=== PATIENT | male | born 1945 | race Caucasian/White ===

== ENCOUNTER 2019-03-25 18:22 | Inpatient (IN) | payer MEDICARE, OTHER ==
[2019-03-25] VITALS (10 sets, daily range): BP systolic 107–148; BP diastolic 65–78
[~2019-03-25] VITALS: Ht 170.2 cm; Wt 81.6 kg
--- NOTE | 2019-03-25 02:30 | NUR ---
Received patient from ED via gurney accompanied by RN and DIRECTOR OF OUTSIDE SALES with Levophed gtt infusing to FELY ML.Dx:SEPSIS SHOCK.Initially patient came from HD center for hypotension.Patient obtunded. With O2 4L via T-Tube well tolerated.A-Flutter/A-fib with pvc's.FC to gravity yellow with sediments. Initial admission assessment done.With multiple skin issues and addressed.Turned and repositioned. Continue monitoring.
[2019-03-25] MEDS ORDERED: PIPERACILLIN /TAZOBACTAM 2.25 G in IV D5W 50 ML IV ONE (18:30)
[2019-03-25] MEDS ORDERED: NOREPINEPHRINE 8 MG in IV D5W 500 ML IV ONE (18:30)
[2019-03-25] MEDS ORDERED: VANCOMYCIN 1 GM in IV D5W 250 ML IV ONE (18:30)
[2019-03-25] MEDS ORDERED: NOREPINEPHRINE 8 MG in IV D5W 500 ML IV PRN ×2 (18:30→20:30)
[2019-03-25 19:07] LABS: BASOPHILS # (AUTO) 0.2 /CMM (0.0-0.2); BASOPHILS % (AUTO) 0.7 % (0.0-2.0); EOSINOPHILS % (AUTO) 1.3 % (0.0-6.0); HEMATOCRIT 43 % (39-51); HEMOGLOBIN 13.3 g/dL (13.5-17.5); LYMPHOCYTES # (AUTO) 1.1 /CMM (0.8-4.8); LYMPHOCYTES % (AUTO) 4.8 % (20.0-44.0); MEAN CORPUSCULAR HGB CONC 31 g/dl (31.0-36.0); MEAN CORPUSCULAR VOLUME 111 fL (80-96); MONOCYTES # (AUTO) 2.3 /CMM (0.1-1.30); MONOCYTES % (AUTO) 10.4 % (2.0-12.0); NEUTROPHILS # (AUTO) 18.1 /CMM (1.8-8.9); NEUTROPHILS % (AUTO) 82.8 % (43.0-81.0); PLATELET COUNT (AUTO) 304 /CMM (150-450); RED BLOOD CELL COUNT(AUTO) 3.85 MIL/uL (4.5-6.0); WHITE BLOOD COUNT (AUTO) 21.8 K/uL (4.3-11.0)
[2019-03-25 19:14] LABS: ALANINE AMINOTRANSFERASE 84 U/L (12-78); ALBUMIN 2.8 g/dL (3.4-5.0); ALKALINE PHOSPHATASE 113 U/L (46-116); ASPARTATE AMINOTRANSFERASE 75 U/L (15-37); BILIRUBIN,DIRECT 0.2 mg/dL (0.0-0.2); BILIRUBIN,TOTAL 0.5 mg/dL (0.2-1.0); CALCIUM, SERUM 8.2 mg/dL (8.5-10.1); CARBON DIOXIDE 17 mmol/L (21-32); CHLORIDE 102 mmol/L (98-107); CREATININE 3.9 mg/dL (0.6-1.3); GLUCOSE 177 mg/dL (74-106); POTASSIUM 4.2 mmol/L (3.5-5.1); SODIUM SERUM 136 mmol/L (136-145); TOTAL PROTEIN, SERUM 8.9 g/dL (6.4-8.2); UREA NITROGEN, BLOOD 58 mg/dL (7-18)
--- NOTE | 2019-03-25 19:38 | NUR ---
CALLED DR GARCIA AND LEFT A MESSAGE. AWAITING HIS CALL.
[2019-03-25 19:43] LABS: APPEARANCE,URINE Cloudy (CLEAR); BILIRUBIN,URINE SMALL (NEGATIVE); BLOOD, URINE Trace-intact Ery/uL (NEGATIVE); COLOR,URINE Yellow (YELLOW); KETONES,URINE Negative (NEGATIVE); LEUKOCYTE ESTERASE ,URINE Small (NEGATIVE); NITRITE, URINE Negative (NEGATIVE); PROTEIN,URINE 100 mg/dl (NEGATIVE); UGLUCOSE Negative (NEGATIVE); UROBILINOGEN,URINE 0.2 EU/dL (0.2)
[2019-03-25 19:53] LABS: BACTERIA,URINE Moderate /HPF (None Seen); SQUAMOUS EPITHELIAL CELL,UR Few /HPF (None Seen)
--- NOTE | 2019-03-25 20:03 | NUR ---
CALLED [employer]. CHAIN MORTISER OPERATOR WAS PAGED.
--- NOTE | 2019-03-25 20:20 | NUR ---
BED ASSIGNMENT ICU 257
[2019-03-25] MEDS ORDERED: ONDANSETRON HCL/PF 4 MG/2 ML VIAL IVP PRN (20:30)
[2019-03-25] MEDS ORDERED: FEE PK DOSING 1 MIN EA MC ONE (20:37)
[2019-03-25] MEDS: PIPERACILLIN /TAZOBACTAM 2.25 G in IV D5W 50 ML IV SCH (21:00)
--- NOTE | 2019-03-25 21:13 | NUR ---
report given to paul rn for sawyer pt will be transpoerted to icu
--- NOTE | 2019-03-25 21:30 | NUR ---
Received patient from ED via gurney accompanied by RN & dairy nutrition consultant.Patient obtunded.With O2 4L 28 % via T-piece.Aflutter /Afib with occasional pvc's per monitor with ongoing Levophed gtt infusing via FELY ML site intact.Dx: SEPTIC SHOCK.Initially patient was transferred here from HD center for hypotension.H/O VDRF,DM,CABG,AFIB,DEMENTIA,ESRD,BLADDER CA,Patient with multiple skin issues.Care plan implemented.GT clamped.FC to gravity. Turned and repositioned to comfort.Continue monitoring.
[2019-03-25 21:41] LABS: BAND % (MANUAL) 5 % (0.0-5.0); NEUTROPHILS % (MANUAL) 80 (42-76)
[2019-03-25 21:42] LABS: EOSINOPHILS % (MANUAL) 1 % (0-4); LYMPHOCYTES % (MANUAL) 5 % (16-48); METAMYELOCYTES % 1 % (0-0); MONOCYTES % (MANUAL) 8 % (0-11.0)
[2019-03-25] MEDS ORDERED: ALBUTEROL FS 2.5 MG/0.5 ML VIAL.NEB NEB SCH (22:30)
[2019-03-25] MEDS ORDERED: IPRATROPIUM BROMIDE 14 GM INHALER (or 12.9 GM) IH SCH (22:30)
[2019-03-26] VITALS (49 sets, daily range): BP systolic 93–150; BP diastolic 45–87
[2019-03-26] MEDS ORDERED: IPRATROPIUM NEB FS 0.5 MG/2.5 ML AMPUL.NEB ONE (03:16)
[2019-03-26] MEDS ORDERED: ALBUTEROL FS 2.5 MG/0.5 ML VIAL.NEB ONE (03:16)
[2019-03-26] MEDS ORDERED: IV NS 0.9% 250 ML IV ONE (03:30)
--- NOTE | 2019-03-26 03:45 | NUR ---
Patient hemodynamically stable.Levophed gtt titrated off.No distress noted.
[2019-03-26] MEDS ORDERED: PIPERACILLIN /TAZOBACTAM 2.25 G VIAL IV ONE (04:48)
[2019-03-26] MEDS: PIPERACILLIN /TAZOBACTAM 2.25 G in IV D5W 50 ML IV SCH ×3 (05:01→21:17)
--- NOTE | 2019-03-26 06:20 | NUR ---
Patient resting.vs stable.AM care done.T-piece at 35% FIO2.No distress noted. Turned and repositioned.Will endorse to day shift for sawyer.
--- NOTE | 2019-03-26 08:00 | NUR ---
ICU/RN AM SHIFT INITIAL NOTES RECEIVED PT ASLEEP IN BED, PT OBTUNDED, OPEN EYES. NO ACUTE CHANGE OF CONDITION OR GRIMACING NOTED. ON T-PIECE WITH 35% FIO2, RESPIRATIONS EVEN & UNLABORED. SATURATING @ 89%. SUCTIONED FOR AIRWAY CLEARANCE. ON TELE WITH CONTROLLED A-FIB, HR 100. HD CATHETER ON RIGHT CHESS WALL INTACT AND LEFT UPPER MIDLINE, INTACT. GT IS CLAMP AT THIS TIME. RIVERA CATHETER INTACT WITH MINIMAL URINE OUTPUT, YELLOW WITH SEDIMENTS URINE OUTPUT. PT IS COMFORTABLE, SCHEDULED AM MEDS TO BE GIVEN. CL WITHIN REACHED AND SAFETY MAINTAINED. ON GOING MONITORING.
--- NOTE | 2019-03-26 08:18 | NUR ---
WOUND CARE CONSULT: PT PRESENTS WITH SACRAL DEEP TISSUE INJURY IN EVOLUTION WHICH EXTENDS TO BILATERAL BUTTOCKS AND BILATERAL ANKLE WOUNDS, PRESENT ON ADMISSION. RECOMMEND SURGICAL/DPM CONSULTS. DR LOUIS NOTIFIED OF CONSULT REQUEST. FIRST STEP LOW AIRLOSS MATTRESS ORDERED. DEFER TO SURGICAL AND PODIATRY TEAMS FOR WOUND TREATMENT PLAN. ALL SKIN PROTECTION RECOMMENDATIONS DISCUSSED WITH NURSING STAFF. WILL SEE PRN. SOLIZ IN AGREEMENT WITH PLAN OF CARE. CURRENT MISSAEL SCORE IS 12. Addendum: 03/26/19 at 0822 by DANIEL JACOBO WNDNU Amended: Links added.
[2019-03-26] MEDS: IPRATROPIUM NEB FS 0.5 MG/2.5 ML AMPUL.NEB NEB SCH ×3 (08:23→20:04)
[2019-03-26] MEDS: ALBUTEROL FS 2.5 MG/0.5 ML VIAL.NEB NEB SCH ×3 (08:23→20:04)
[2019-03-26] MEDS ORDERED: Z GUARD REMEDY 2 OZ OINT TP PRN (08:30)
[2019-03-26] MEDS: PANTOPRAZOLE 40 MG VIAL IV SCH (08:47)
--- NOTE | 2019-03-26 08:50 | NUR ---
ICU/RN ROUNDS - Jes PATEL PT SEEN & EXAMINED BY DR. EDWARDS, NO NEW ORDER RECEIVED AT THIS TIME.
--- NOTE | 2019-03-26 09:15 | NUR ---
ICU/RN MEDICAL RECORD - [facility] REQUEST TO OBTAIN MEDICAL RECORD FROM [facility] SENT. ACKNOWLEDGED BY SHIRLEY OF MEDICAL RECORD DEPARTMENT, AWAITING TO RECEIVE RECORDS REQUESTED.
[2019-03-26] MEDS: Z GUARD REMEDY 2 OZ OINT TP SCH (10:42)
--- NOTE | 2019-03-26 14:07 | NUR ---
ICU/RN STATUS CODE - FULL CODE VERIFIED STATUS CODE WITH PT'S DPOA (LOLA BECKETT). FULL CODE.
[2019-03-26] MEDS ORDERED: AMAN100T GT (15:33)
[2019-03-26] MEDS ORDERED: ASPI-605 GT (15:36)
[2019-03-26] MEDS ORDERED: LOSA50TA3 GT (15:36)
[2019-03-26] MEDS ORDERED: EPOE1VIA7 IJ (15:41)
[2019-03-26] MEDS ORDERED: ATOR10TA GT (15:49)
[2019-03-26] MEDS ORDERED: PROT946L GT (16:02)
[2019-03-26] MEDS ORDERED: CHLO473M5 MM (16:02)
[2019-03-26] MEDS ORDERED: CARV3.12 GT (16:02)
[2019-03-26] MEDS ORDERED: ACET160S GT (16:06)
[2019-03-26] MEDS ORDERED: CLON0.1T GT (16:06)
[2019-03-26] MEDS ORDERED: IPRA3AMP23 IH (16:06)
[2019-03-26] MEDS ORDERED: PANT40TA2 PO (16:06)
[2019-03-26] MEDS ORDERED: INSU100I4 SQ (16:06)
[2019-03-26] MEDS ORDERED: METO-295 GT (16:06)
[2019-03-26] MEDS ORDERED: LEVE500T9 PO (16:08)
--- NOTE | 2019-03-26 16:30 | NUR ---
ICU/RN MED RECON PT'S SNF MEDICATIONS ENTERED IN THIS SYSTEM FOR RECONCILIATION, DR. SANTANA MADE AWARE.
--- NOTE | 2019-03-26 17:00 | NUR ---
ICU/RN AFTERNOON ROUNDS PM CARE PROVIDED, NO ACUTE CHANGE OF CONDITION. MONITORING CONTINUED.
[2019-03-26] MEDS: NEPRO 1,000 ML BOTTLE GT PRN (17:58)
--- NOTE | 2019-03-26 19:30 | NUR ---
ICU/RN AM SHIFT END NOTES ALL NEEDS MET. NO ACUTE CHANGE OF CONDITION DURING THE SHIFT. PT ENDORSED TO PM NURSE TO CONTINUE CARE. CL WITHIN REACHED AND SAFETY MAINTAINED.
--- NOTE | 2019-03-26 19:45 | NUR ---
ICU/RECYCLING SPECIALIST RECEIVED REPORT FROM DAY SHIFT NURSE. SEE FLOWSHEET FOR ASSESSMENT. THERE ARE A FEW SKIN ISSUES THAT ARE ADDRESSED, ALONG WITH THE INTERVENTIONS TO EACH. PT IS NONVERBAL BUT OPENS EYES. PT HAS TRACH ON COOL AEROSOL, TOLERATING CURRENT SETTINGS WITH SATURATION AT 100%. PT WAS TURNED AND REPOSITIONED FOR COMFORT AND CARE, WILL CONTINUE TO MONITOR THIS PT.
--- NOTE | 2019-03-26 21:50 | NUR ---
ICU/WIRE WINDING MACHINE TENDER PT WAS TURNED AND REPOSITIONED FOR COMFORT AND CARE. WILL CONTINUE TO MONITOR THIS PT. NO ACUTE DISTRESS SEEN AT THIS TIME.
[2019-03-27] VITALS (22 sets, daily range): BP systolic 89–140; BP diastolic 43–71
--- NOTE | 2019-03-27 00:10 | NUR ---
ICU/PRESS SERVICE READER PT WAS TURNED AND REPOSITIONED FOR COMFORT AND CARE. WILL CONTINUE TO MONITOR THIS PT. NO ACUTE DISTRESS SEEN AT THIS TIME.
[2019-03-27] MEDS: ALBUTEROL FS 2.5 MG/0.5 ML VIAL.NEB NEB SCH ×4 (01:20→19:26)
[2019-03-27] MEDS: IPRATROPIUM NEB FS 0.5 MG/2.5 ML AMPUL.NEB NEB SCH ×4 (01:20→19:26)
--- NOTE | 2019-03-27 02:00 | NUR ---
ICU/DATABASE ANALYST PT WAS GIVEN AM CARE, ALONG WITH ORAL CARE. PT REMAINS ON CURRENT COOL AEROSOL SETTINGS, SATURATION IS 100%. PT WAS TURNED AND REPOSITIONED FOR COMFORT AND CARE. NO ACUTE DISTRESS SEEN AT THIS TIME.
--- NOTE | 2019-03-27 04:00 | NUR ---
ICU/MEATMAN AM LABS WERE DRAWN ALONG WITH CXR, AWAIT FOR ANY CRITICAL LAB VALUES.
[2019-03-27] MEDS: PIPERACILLIN /TAZOBACTAM 2.25 G in IV D5W 50 ML IV SCH ×3 (04:11→21:48)
[2019-03-27 05:02] LABS: BASOPHILS # (AUTO) 0.1 /CMM (0.0-0.2); BASOPHILS % (AUTO) 0.3 % (0.0-2.0); HEMATOCRIT 36 % (39-51); HEMOGLOBIN 11.8 g/dL (13.5-17.5); LYMPHOCYTES # (AUTO) 1.1 /CMM (0.8-4.8); LYMPHOCYTES % (AUTO) 4.9 % (20.0-44.0); MEAN CORPUSCULAR HGB CONC 33 g/dl (31.0-36.0); MEAN CORPUSCULAR VOLUME 107 fL (80-96); MONOCYTES # (AUTO) 2.6 /CMM (0.1-1.30); NEUTROPHILS # (AUTO) 17.9 /CMM (1.8-8.9); NEUTROPHILS % (AUTO) 81.8 % (43.0-81.0); PLATELET COUNT (AUTO) 252 /CMM (150-450); RED BLOOD CELL COUNT(AUTO) 3.36 MIL/uL (4.5-6.0); WHITE BLOOD COUNT (AUTO) 21.9 K/uL (4.3-11.0)
[2019-03-27 05:13] LABS: CARBON DIOXIDE 14 mmol/L (21-32); CHLORIDE 104 mmol/L (98-107); CREATININE 5.5 mg/dL (0.6-1.3); GLUCOSE 126 mg/dL (74-106); POTASSIUM 3.5 mmol/L (3.5-5.1); SODIUM SERUM 140 mmol/L (136-145)
--- NOTE | 2019-03-27 05:15 | NUR ---
ICU/ESCROW MANAGER CRITICAL LAB VALUES WAS CALLED IN BUN IS 103. PT IS TO HAVE HD TODAY.
[2019-03-27 05:35] LABS: UREA NITROGEN, BLOOD 103 mg/dL (7-18)
--- NOTE | 2019-03-27 07:50 | NUR ---
multicultural manager note received patient in bed, awake alert , with trach to cooler aerosol 35% fio2 , on tele monitor afib hr 103 , on g tube feeding as ordered , hob elevated no residual noted at this time , lt upper arm mid line in place flushed well , plan of care discussed with patient , bed in lowest and locked position , will cont to monitor
--- NOTE | 2019-03-27 08:30 | NUR ---
DATA PROCESSING MECHANIC NOTE SPOKE WITH DR SUN NOTIFIED THAT TROP 0.152 STATED THAT WILL CHECK IT OUT
[2019-03-27] MEDS: PANTOPRAZOLE 40 MG VIAL IV SCH (08:35)
[2019-03-27] MEDS: HYDROGEL DRESSING 90 GM TUBE TP SCH (08:36)
[2019-03-27] MEDS: Z GUARD REMEDY 2 OZ OINT TP SCH (08:37)
--- NOTE | 2019-03-27 09:22 | NUR ---
RESEARCH AND DEVELOPMENT ENGINEER NOTE SD PELEG AT BESIDE NO NEW ORDER AT THIS TIME WILL MONITOR
--- NOTE | 2019-03-27 11:13 | NUR ---
COMBINATION WELDER NOTE DIETARY AT BEDSIDE TOLERATED G TUBE, FEEDING WELL
--- NOTE | 2019-03-27 11:17 | NUR ---
RABBIT FANCIER NOTE SEEN BY DR SANTANA AWARE THAT WBC 21.9 OK TO CONT ON ATB , WILL MONITOR
[2019-03-27] MEDS: ACETAMINOPHEN 325 MG TABLET PO PRN (12:35)
--- NOTE | 2019-03-27 13:00 | NUR ---
MAMMOGRAPHY TECH NOTE PLACED A CALL WITH AGAPITO DAVILA AND OBTAINED VERBAL CONSENT VIA PHONE FOR HD
--- NOTE | 2019-03-27 13:48 | NUR ---
PRICING SUPERVISOR NOTE HD STARTED ORDERED
--- NOTE | 2019-03-27 14:29 | NUR ---
MEDICAL BILLING CLERK NOTE PATIENT ON DIALYSIS AT THIS TIME, PATIENT NOTED WITH B/P 97/64. ALBUMIN IV STARTED PER DIALYSIS NURSE.
[2019-03-27] MEDS: ALBUMIN 25% 25 GM in PREMIX 1 EA IV PRN (14:32)
[2019-03-27] MEDS ORDERED: ALTEPLASE CATHFLO 2 MG/VIAL IV ONE (15:30)
--- NOTE | 2019-03-27 15:32 | NUR ---
RUSTIC TERRAZZO SETTER NOTE PER HD NURSE HD CATH IS CLOTTED ACTIVASE 4 MG WAS ADMINISTERED BY HD NURSE
--- NOTE | 2019-03-27 15:44 | NUR ---
CLEAT LAYER NOTE PER HD NURSE , HD DONE NO FLUIDS OUT BP IS Addendum: 03/27/19 at 1547 by KALIE NORRIS RN BP IS 112/63 HR 103 ,SAT 96% ,WILL MONITOR
[2019-03-27] MEDS: VANCOMYCIN 500 MG in IV D5W 100 ML IV PRN (15:54)
[2019-03-27] MEDS: NEPRO 1,000 ML BOTTLE GT PRN (16:44)
--- NOTE | 2019-03-27 17:00 | NUR ---
INVENTORY CONTROL SPECIALIST NOTE TRACH CARE DONE, ALL NEEDS ATTENDED ,NOT IN DISTRESS
--- NOTE | 2019-03-27 18:50 | NUR ---
DARSHANA RN RECEIVING Received patient from ICU. Patient nonverbal, opens eyes, per report can thumb up or down. Attached to [facility] vent, no SOB noted. Tele monitor attached, A fib. Nephro running @45mL/hr. L Arm midline c/d/i, patent. Suction at bedside. See vitals. Will endorse to kenny SLAUGHTER for sawyer Addendum: 03/27/19 at 1956 by JHON JAVIER RN CORRECTION: PATIENT IN ON 5L COOL AEROSOL Addendum: 03/27/19 at 1956 by JHON JAVIER RN NO PULSE OX ATTACHED. ENDORSED TO NILTON SLAUGHTER
--- NOTE | 2019-03-27 18:56 | NUR ---
FIELD SERVICE ENGINEER NOTE TRANSFERRED TO ICU WITH STABLE CONDITION BY ACLS PROTOCOL, WITH STABLE CONDITION , REPORT GIVEN TO KAELYN SLAUGHTER
--- NOTE | 2019-03-27 19:25 | NUR ---
DARSHANA/RN notes, Patient received in bed, Alert, awake, open eyes, Non-verbal, In No acute distress, Breathing even and unlabored, on T-piece with FIO2 35%, saturation 96%, no S/S of pain at this time, HOB elevated, FELY midline with no S/S of infection/ Infiltration, G-tube in place, patent, connected to feeding as ordered, no residual at this time, HOB elevated. On tele monitoring with A-fib 105 with PVC's, Safety maintained, bed at the lowest locked position, Call light within reach, Will continue to monitor as per plan of care.
[2019-03-28] VITALS (7 sets, daily range): BP systolic 103–132; BP diastolic 43–75
[2019-03-28] MEDS: ALBUTEROL FS 2.5 MG/0.5 ML VIAL.NEB NEB SCH ×4 (01:23→20:10)
[2019-03-28] MEDS: IPRATROPIUM NEB FS 0.5 MG/2.5 ML AMPUL.NEB NEB SCH ×4 (01:24→20:10)
[2019-03-28] MEDS: PIPERACILLIN /TAZOBACTAM 2.25 G in IV D5W 50 ML IV SCH ×3 (04:42→21:36)
[2019-03-28 06:43] LABS: BASOPHILS # (AUTO) 0.1 /CMM (0.0-0.2); BASOPHILS % (AUTO) 0.6 % (0.0-2.0); EOSINOPHILS % (AUTO) 4.4 % (0.0-6.0); HEMATOCRIT 32 % (39-51); HEMOGLOBIN 10.5 g/dL (13.5-17.5); LYMPHOCYTES # (AUTO) 0.8 /CMM (0.8-4.8); LYMPHOCYTES % (AUTO) 4.7 % (20.0-44.0); MEAN CORPUSCULAR HGB CONC 33 g/dl (31.0-36.0); MEAN CORPUSCULAR VOLUME 106 fL (80-96); MONOCYTES # (AUTO) 1.9 /CMM (0.1-1.30); MONOCYTES % (AUTO) 11.4 % (2.0-12.0); NEUTROPHILS % (AUTO) 78.9 % (43.0-81.0); PLATELET COUNT (AUTO) 214 /CMM (150-450); RED BLOOD CELL COUNT(AUTO) 3.04 MIL/uL (4.5-6.0); WHITE BLOOD COUNT (AUTO) 16.5 K/uL (4.3-11.0)
--- NOTE | 2019-03-28 06:48 | NUR ---
PATIENT RECEIVED ON 35% AEROSOL T-TUBE, TOLERATING WITH NO DISTRESS/SOB NOTED. SUCTIONED WITH LAVAGE FOR MINIMAL, THIN, YELLOW SECRETIONS. GIVEN IN-LINE TREATMENTS WITH NO ADVERSE REACTIONS. AMBU BAG AT BEDSIDE. PULSE OXIMETER ALARM AUDIBLE AND VISIBLE. TRACH CARE DONE. CHANGED INNER CANNULA PORTEX 7. Addendum: 03/28/19 at [address] RT Amended: Links added.
--- NOTE | 2019-03-28 07:21 | NUR ---
DARSHANA/RN notes, Patient remained in bed, Alert, awake, open eyes, Non-verbal, In No acute distress, Breathing even and unlabored, on T-piece with FIO2 35%, saturation 98%, no S/S of pain at this time, HOB elevated, FELY midline with no S/S of infection/ Infiltration, G-tube in place, patent, connected to feeding as ordered, no residual at this time, HOB elevated. On tele monitoring with A-fib controlled, with PVC's, due meds given as ordered, treatments rendered, tolerated well. needs attendant, Safety maintained, bed at the lowest locked position. Endorse to Am shift nurse for RONALD.
--- NOTE | 2019-03-28 07:24 | NUR ---
DARSHANA RN OPENING NOTE RECEIVED REPORT FROM [facility] SHIFT NURSE. PT AWAKE IN BED, ALERT, OPENS TO EYES TO PAIN AND VERBAL STIMULI, NON VERBAL. ON T-PIECE WITH FIO2 35%, RESPIRATIONS EVEN AND UNLABORED, NO SIGNS OF RESPIRATORY DISTRESS NOTED. FELY MIDLINE INTACT AND PATENT, SECURED WITH CLEAN DRESSING, G-TUBE IN PLACE, PATENT, NEPHRO INFUSING AT 45CC/HR, TOLERATING FEEDING WELL, NO RESIDUAL NOTED. ON TELE MONITOR WITH CONTROLLED A-FIB HR 96. BED IN LOW POSITION, LOCKED, CALL LIGHT WITHIN REACH, HOB ELEVATED.
[2019-03-28 07:29] LABS: CALCIUM, SERUM 8.3 mg/dL (8.5-10.1); CARBON DIOXIDE 17 mmol/L (21-32); CHLORIDE 104 mmol/L (98-107); GLUCOSE 142 mg/dL (74-106); SODIUM SERUM 141 mmol/L (136-145)
[2019-03-28 07:33] LABS: UREA NITROGEN, BLOOD 92 mg/dL (7-18)
--- NOTE | 2019-03-28 07:38 | NUR ---
RECEIVED PHONE CALL FROM LAB WITH CRITICAL LAB RESULT- SPOKE WITH NARCISO. POTASSIUM LEVEL 2.6
[2019-03-28 07:39] LABS: POTASSIUM 2.6 mmol/L (3.5-5.1)
[2019-03-28] MEDS: PANTOPRAZOLE 40 MG VIAL IV SCH (08:32)
[2019-03-28] MEDS: HYDROGEL DRESSING 90 GM TUBE TP SCH (08:33)
[2019-03-28] MEDS: Z GUARD REMEDY 2 OZ OINT TP SCH (08:33)
--- NOTE | 2019-03-28 11:46 | NUR ---
RN NOTES SPOKE TO DR SANTANA ABOUT THE ELIQUIS ORDER MENTIONED BY CARDIOLOGY, PER DR. SANTANA NO NEW ORDERS AT THIS TIME.
[2019-03-28] MEDS ORDERED: POTASSIUM CL. PREMIX PERIPHER. 50 ML IV SCH (12:00)
[2019-03-28] MEDS ORDERED: POTASSIUM CHLORIDE 20 MEQ TAB.PRT.SR PO ONE (12:00)
[2019-03-28] MEDS ORDERED: JEVITY 1.2 CAL 1,000 ML BOTTLE GT PRN (13:30)
[2019-03-28] MEDS ORDERED: ALBUMIN 25% 25 GM in PREMIX 1 EA IV PRN (16:00)
[2019-03-28] MEDS: ALBUMIN 25% 25 GM in PREMIX 1 EA IV PRN (16:14)
--- NOTE | 2019-03-28 18:31 | NUR ---
RN CLOSING NOTES PATIENT REMAIN IN STABLE CONDITION, AWAKE, NOT IN DISTRESS, DIALYSIS COMPLETED AND OUTPUT OF 1500 ML PER DIALYSIS NURSE, V/S REMAIN STABLE, NO FEVER NOTED, IV SITE PATENT AND REMAIN INTACT, KEPT CLEAN AND DRY, REPOSITIONED Q 2 HRS. FLUSHED GT ORDERED. HOB UP, CALL LIGHT WITHIN REACH
--- NOTE | 2019-03-28 19:25 | NUR ---
DARSHANA/RN notes, Patient received in bed, Alert, awake, open eyes, Non-verbal, In No acute distress, Breathing even and unlabored, on T-piece with FIO2 35%, saturation 98%, no S/S of pain at this time, HOB elevated, FELY midline with no S/S of infection/ Infiltration, G-tube in place, patent, connected to feeding as ordered, no residual at this time, HOB elevated. On tele monitoring with A-fib, Safety maintained, bed at the lowest locked position, Call light within reach, Will continue to monitor as per plan of care.
[2019-03-28] MEDS: NEPRO 1,000 ML BOTTLE GT PRN (20:26)
[2019-03-29] VITALS: BP 133/70
[2019-03-29] MEDS: IPRATROPIUM NEB FS 0.5 MG/2.5 ML AMPUL.NEB NEB SCH ×4 (01:44→19:22)
[2019-03-29] MEDS: ALBUTEROL FS 2.5 MG/0.5 ML VIAL.NEB NEB SCH ×4 (01:44→19:22)
[2019-03-29 04:00] VITALS: BP 143/82
[2019-03-29] MEDS: PIPERACILLIN /TAZOBACTAM 2.25 G in IV D5W 50 ML IV SCH ×3 (04:58→20:30)
[2019-03-29 06:40] LABS: BASOPHILS # (AUTO) 0.1 /CMM (0.0-0.2); BASOPHILS % (AUTO) 0.7 % (0.0-2.0); EOSINOPHILS % (AUTO) 9.1 % (0.0-6.0); HEMATOCRIT 34 % (39-51); HEMOGLOBIN 11.1 g/dL (13.5-17.5); LYMPHOCYTES # (AUTO) 0.8 /CMM (0.8-4.8); LYMPHOCYTES % (AUTO) 5.6 % (20.0-44.0); MEAN CORPUSCULAR HGB CONC 33 g/dl (31.0-36.0); MEAN CORPUSCULAR VOLUME 105 fL (80-96); MONOCYTES # (AUTO) 1.9 /CMM (0.1-1.30); MONOCYTES % (AUTO) 13.1 % (2.0-12.0); NEUTROPHILS # (AUTO) 10.3 /CMM (1.8-8.9); NEUTROPHILS % (AUTO) 71.5 % (43.0-81.0); PLATELET COUNT (AUTO) 213 /CMM (150-450); RED BLOOD CELL COUNT(AUTO) 3.23 MIL/uL (4.5-6.0); WHITE BLOOD COUNT (AUTO) 14.3 K/uL (4.3-11.0)
--- NOTE | 2019-03-29 06:47 | NUR ---
DARSHANA/RN notes, Patient remained in bed, Alert, awake, open eyes, Non-verbal, In No acute distress, Breathing even and unlabored, on T-piece with FIO2 35%, saturation 98%, no S/S of pain at this time, HOB elevated, FELY midline with no S/S of infection/ Infiltration, G-tube in place, patent, connected to feeding as ordered, no residual at this time, HOB elevated. due meds given as ordered, treatments rendered, tolerated well. needs attendant, Safety maintained, bed at the lowest locked position. Endorse to Am shift nurse for RONALD.
[2019-03-29 07:06] LABS: CALCIUM, SERUM 9.6 mg/dL (8.5-10.1); CARBON DIOXIDE 25 mmol/L (21-32); CHLORIDE 105 mmol/L (98-107); CREATININE 3.6 mg/dL (0.6-1.3); GLUCOSE 122 mg/dL (74-106); SODIUM SERUM 145 mmol/L (136-145); UREA NITROGEN, BLOOD 55 mg/dL (7-18)
--- NOTE | 2019-03-29 07:30 | NUR ---
DARSHANA RN OPENING NOTE RECEIVED REPORT FROM PM NURSE.PATIENT AWAKE IN BED,ALERT, OPENS TO EYES SPONTANEOUSLY.ABLE TO MOVE R SIDE.L SIDE WEAKNESS .BASELINE STATUS FROM REPORT.ON T-PIECE WITH FIO2 35%, RESPIRATIONS EVEN AND UNLABORED, NO SIGNS OF RESPIRATORY DISTRESS NOTED.FELY MIDLINE INTACT AND PATENT. G-TUBE IN PLACE, PATENT.NEPHRO INFUSING AT 45CC/HR, TOLERATING FEEDING WELL, NO RESIDUAL NOTED. ON TELE MONITOR WITH SR HR 65.BED IN LOW POSITION, LOCKED. CALL LIGHT WITHIN REACH.HOB ELEVATED. BED ALARM ON.SRX3.WILL CONTINUE TO MONITOR.
[2019-03-29 08:00] VITALS: BP 141/79
[2019-03-29] MEDS: PANTOPRAZOLE 40 MG VIAL IV SCH (08:50)
[2019-03-29] MEDS: Z GUARD REMEDY 2 OZ OINT TP SCH (08:51)
[2019-03-29] MEDS: HYDROGEL DRESSING 90 GM TUBE TP SCH (08:51)
[2019-03-29] MEDS ORDERED: POTASSIUM CHLORIDE 20 MEQ TAB.PRT.SR PO SCH (09:00)
[2019-03-29] MEDS: POTASSIUM CHLORIDE 20 MEQ POWDER PACKET GT SCH ×3 (09:10→12:59)
[2019-03-29 09:41] LABS: EOSINOPHILS % (MANUAL) 5 % (0-4); LYMPHOCYTES % (MANUAL) 7 % (16-48); MONOCYTES % (MANUAL) 18 % (0-11.0); MYELOCYTES % 1 % (0-0); NEUTROPHILS % (MANUAL) 69 (42-76)
--- NOTE | 2019-03-29 10:59 | NUR ---
SHOWER DOORS AND PANELS FABRICATOR NOTE SEEN BY .UPDATED ABOUT PATIENT CONDITION WITH LABS.GOT NEW ORDER FOR LABS.NO DISCHARGE TODAY.WILL CONTINUE TO MONITOR.
[2019-03-29 12:00] VITALS: BP 123/84
[2019-03-29] MEDS: VANCOMYCIN 500 MG in IV D5W 100 ML IV PRN (14:50)
[2019-03-29 16:00] VITALS: BP 140/75
--- NOTE | 2019-03-29 19:21 | NUR ---
TABLET COATER CLOSING NOTE PATIENT AWAKE IN BED,ALERT, OPENS TO EYES SPONTANEOUSLY.ABLE TO MOVE R SIDE.L SIDE WEAKNESS .ON T-PIECE WITH FIO2 35%, RESPIRATIONS EVEN AND UNLABORED, NO SIGNS OF RESPIRATORY DISTRESS NOTED.FELY MIDLINE INTACT AND PATENT. G-TUBE IN PLACE, PATENT.NEPHRO INFUSING AT 45CC/HR, TOLERATING FEEDING WELL, NO RESIDUAL NOTED. ON TELE MONITOR WITH AFIB ,HR 90'S.BED IN LOW POSITION, LOCKED. CALL LIGHT WITHIN REACH.HOB ELEVATED. BED ALARM ON.SRX3.ENDORSED TO PM NURSE FOR RONALD.
[2019-03-29 20:00] VITALS: BP 178/90
[2019-03-29] MEDS: NEPRO 1,000 ML BOTTLE GT PRN (20:31)
--- NOTE | 2019-03-29 20:33 | NUR ---
RN NOTES PATIENT ALERT AND AWAKE, COOL AEROSOL, SPO2 98%, NON VERBAL, OPENS EYES, AWARE OF SURROUNDINGS, NOT IN APPARENT DISTRESS, CALM, PEG TUBE IN PLACE, INFUSING AND TOLERATING WELL, KEPT SAFE, WILL CONTINUE TO MONITOR
[2019-03-29] MEDS ORDERED: ACETAMINOPHEN 160 MG/5 ML GT PRN (21:30)
[2019-03-29] MEDS ORDERED: CLONIDINE HCL 0.1 MG TABLET GT PRN (21:30)
[2019-03-29] MEDS ORDERED: METOCLOPRAMIDE HCL 10 MG TABLET GT PRN (21:30)
[2019-03-29] MEDS ORDERED: EPOETIN ALFA (10,000 UNIT) 10,000 UNIT/ML VIAL IJ SCH (21:30)
[2019-03-29] MEDS ORDERED: DEXTROSE 50%-WATER 50 ML DISP.SYRIN IV PRN (21:30)
[2019-03-29] MEDS ORDERED: ATORVASTATIN 10 MG TABLET GT SCH (22:00)
[2019-03-29] MEDS: BLOOD SUGAR DIAGNOSTIC 1 EACH STRIP IN SCH (23:45)
--- NOTE | 2019-03-30 | NUR ---
RN NOTES BG 118 MG/DL, NO INSULIN GIVEN, CONTINUE G TUBE FEEDING
[2019-03-30 00:15] VITALS: BP 144/82
[2019-03-30] MEDS: INSULIN REGULAR, HUMAN 100 UNIT/ML 3 ML VIAL SQ PRN ×2 (00:31→05:58)
[2019-03-30] MEDS: IPRATROPIUM NEB FS 0.5 MG/2.5 ML AMPUL.NEB NEB SCH ×3 (01:46→13:36)
[2019-03-30] MEDS: ALBUTEROL FS 2.5 MG/0.5 ML VIAL.NEB NEB SCH ×3 (01:46→13:36)
[2019-03-30 04:08] VITALS: BP 151/80
[2019-03-30] MEDS: PIPERACILLIN /TAZOBACTAM 2.25 G in IV D5W 50 ML IV SCH ×2 (04:28→13:00)
[2019-03-30] MEDS: BLOOD SUGAR DIAGNOSTIC 1 EACH STRIP IN SCH ×3 (05:56→19:38)
--- NOTE | 2019-03-30 06:14 | NUR ---
RN NOTES PATIENT IS ALERT AND AWAKE, NO DISTRESS, ON COOL AEROSOL, SPO2 98%, NOT IN APPARENT PAIN, MED RECON DONE INCLUDING KEPPRA AND ACCUCHECK Q6HRS, CONTINUE ZOSYN, HD TODAY, VS STABLE.
[2019-03-30 07:24] LABS: BASOPHILS # (AUTO) 0.1 /CMM (0.0-0.2); BASOPHILS % (AUTO) 0.7 % (0.0-2.0); EOSINOPHILS % (AUTO) 14.3 % (0.0-6.0); HEMATOCRIT 35 % (39-51); HEMOGLOBIN 11.2 g/dL (13.5-17.5); LYMPHOCYTES % (AUTO) 6.9 % (20.0-44.0); MEAN CORPUSCULAR HGB CONC 32 g/dl (31.0-36.0); MEAN CORPUSCULAR VOLUME 106 fL (80-96); MONOCYTES # (AUTO) 1.3 /CMM (0.1-1.30); MONOCYTES % (AUTO) 9.4 % (2.0-12.0); NEUTROPHILS # (AUTO) 9.8 /CMM (1.8-8.9); NEUTROPHILS % (AUTO) 68.7 % (43.0-81.0); PLATELET COUNT (AUTO) 226 /CMM (150-450); RED BLOOD CELL COUNT(AUTO) 3.26 MIL/uL (4.5-6.0); WHITE BLOOD COUNT (AUTO) 14.3 K/uL (4.3-11.0)
[2019-03-30 07:29] LABS: CARBON DIOXIDE 21 mmol/L (21-32); CHLORIDE 106 mmol/L (98-107); CREATININE 4.7 mg/dL (0.6-1.3); GLUCOSE 144 mg/dL (74-106); POTASSIUM 3.8 mmol/L (3.5-5.1); SODIUM SERUM 144 mmol/L (136-145); UREA NITROGEN, BLOOD 78 mg/dL (7-18)
[2019-03-30] MEDS ORDERED: PANTOPRAZOLE 40 MG TABLET.DR PO SCH (07:30)
[2019-03-30 08:00] VITALS: BP 152/83
[2019-03-30] MEDS: PANTOPRAZOLE 40 MG VIAL IV SCH (08:41)
[2019-03-30] MEDS: CHLORHEXIDINE GLUCONATE 15 ML UDC MM SCH ×2 (08:41→17:00)
[2019-03-30] MEDS: PROSOURCE / PROSTAT (PYXIS) 30 ML UDC GT SCH ×2 (08:41→17:05)
[2019-03-30] MEDS: LEVETIRACETAM SOL (5 ML) 100 MG/ML UDC GT SCH ×2 (08:41→17:04)
[2019-03-30] MEDS: HYDROGEL DRESSING 90 GM TUBE TP SCH (08:42)
[2019-03-30] MEDS: CARVEDILOL 3.125 MG TABLET GT SCH ×2 (08:42→17:03)
[2019-03-30] MEDS: Z GUARD REMEDY 2 OZ OINT TP SCH (08:42)
[2019-03-30] MEDS ORDERED: AMANTADINE HCL 100 MG CAPSULE GT SCH (09:00)
[2019-03-30] MEDS ORDERED: ASPIRIN EC 81 MG TABLET.DR PO SCH (09:00)
[2019-03-30] MEDS ORDERED: CHLORHEXIDINE GLUCONATE 473 ML BOTTLE MM SCH (09:00)
[2019-03-30] MEDS ORDERED: Medication Not On Formulary EA (Levetiracetam (Keppra) 500 MG) PO SCH (09:00)
[2019-03-30] MEDS ORDERED: LOSARTAN POTASSIUM 50 MG TABLET GT SCH (09:00)
[2019-03-30 09:15] LABS: BAND % (MANUAL) 1 % (0.0-5.0); EOSINOPHILS % (MANUAL) 11 % (0-4); LYMPHOCYTES % (MANUAL) 5 % (16-48); MONOCYTES % (MANUAL) 7 % (0-11.0); NEUTROPHILS % (MANUAL) 76 (42-76)
[2019-03-30] MEDS ORDERED: PIPE3.379 IV (10:49)
[2019-03-30 12:00] VITALS: BP 152/86
[2019-03-30 16:00] VITALS: BP_SYST 114; BP_SYST 163; BP_DIAS 61; BP_DIAS 91
[2019-03-30 17:03] VITALS: BP 114/61
[2019-03-30] MEDS: VANCOMYCIN 500 MG in IV D5W 100 ML IV PRN (17:05)
--- NOTE | 2019-03-30 19:15 | NUR ---
RN DC NOTE Received DC order. Report given to Royal at [facility]. Endorsed that patient is not on blood thinners due to hx GI bleed, hx A fib. Wound pictures taken. No belongings. IV site left intact d/t IV abx. patient in stable condition. 5L O2 via TP. Patient being transported with an RT. Addendum: 03/30/19 at 2042 by JHON JAVIER RN Patient able to nod yes or no upon discharge..
[2019-03-30] MEDS: ACETAMINOPHEN 325 MG TABLET PO PRN (19:37)
== END 2019-03-30 21:44 | DRG 871 ==
LOC: ER 18:24 → ICU 20:24 → TELE-TD 03-27 18:24 → TELE1 03-29 09:19
PROVIDERS: ADMIT Registered Nurse; ATTEND Family Medicine
PROC: 5A1D70Z Performance of Urinary Filtration, Intermittent, Less than 6 Hours Per Day (ICD-10-PCS; principal; 2019-03-27)
PROC: 5A1D70Z Performance of Urinary Filtration, Intermittent, Less than 6 Hours Per Day (ICD-10-PCS; 2019-03-28)
PROC: 5A1D70Z Performance of Urinary Filtration, Intermittent, Less than 6 Hours Per Day (ICD-10-PCS; 2019-03-29)
DX: A41.9 Sepsis, unspecified organism (principal); R65.21 Severe sepsis with septic shock; J69.0 Pneumonitis due to inhalation of food and vomit; N18.6 End stage renal disease; E87.2 Acidosis; I13.2 Hypertensive heart and chronic kidney disease with heart failure and with stage 5 chronic kidney disease, or end stage renal disease; N39.0 Urinary tract infection, site not specified; J96.10 Chronic respiratory failure, unspecified whether with hypoxia or hypercapnia; G93.40 Encephalopathy, unspecified; I50.20 Unspecified systolic (congestive) heart failure; L97.929 Non-pressure chronic ulcer of unspecified part of left lower leg with unspecified severity; L97.919 Non-pressure chronic ulcer of unspecified part of right lower leg with unspecified severity; D72.829 Elevated white blood cell count, unspecified; R13.10 Dysphagia, unspecified; Z93.1 Gastrostomy status; Z93.0 Tracheostomy status; F03.90 Unspecified dementia, unspecified severity, without behavioral disturbance, psychotic disturbance, mood disturbance, and anxiety; E11.22 Type 2 diabetes mellitus with diabetic chronic kidney disease; I25.10 Atherosclerotic heart disease of native coronary artery without angina pectoris; D63.1 Anemia in chronic kidney disease; Z99.2 Dependence on renal dialysis; Z85.51 Personal history of malignant neoplasm of bladder; R74.0 Nonspecific elevation of levels of transaminase and lactic acid dehydrogenase [LDH]; I48.91 Unspecified atrial fibrillation; E66.9 Obesity, unspecified; Z68.28 Body mass index [BMI] 28.0-28.9, adult; Z95.1 Presence of aortocoronary bypass graft; E11.65 Type 2 diabetes mellitus with hyperglycemia; Z86.19 Personal history of other infectious and parasitic diseases; L89.150 Pressure ulcer of sacral region, unstageable; L89.320 Pressure ulcer of left buttock, unstageable; L89.310 Pressure ulcer of right buttock, unstageable; E11.622 Type 2 diabetes mellitus with other skin ulcer; M20.42 Other hammer toe(s) (acquired), left foot; M20.41 Other hammer toe(s) (acquired), right foot; M62.562 Muscle wasting and atrophy, not elsewhere classified, left lower leg; M62.561 Muscle wasting and atrophy, not elsewhere classified, right lower leg; E87.6 Hypokalemia; Z86.73 Personal history of transient ischemic attack (TIA), and cerebral infarction without residual deficits; S21.219A Laceration without foreign body of unspecified back wall of thorax without penetration into thoracic cavity, initial encounter; S41.112A Laceration without foreign body of left upper arm, initial encounter; S41.111A Laceration without foreign body of right upper arm, initial encounter; X58.XXXA Exposure to other specified factors, initial encounter; Y92.89 Other specified places as the place of occurrence of the external cause
CPT/HCPCS: 31720; 36415; 71045-TC; 80048-TC; 80076-TC; 80177; 80202-TC; 81000-TC; 82962-TC; 83605-TC; 84484-TC; 85025-TC; 85730-TC; 86706; 87040-TC; 87070-TC; 87081-TC; 87086-TC; 87186-TC; 87340; 90935-TC; 93307-TC; 94640-TC; 94664-TC; 94760-TC; 94762-TC; 94799-TC; A4216; A4217; A4623; A6248; A6253; A6403; C9113; G0378; J1815; J1953; J2543; J2997; J3370; J3490; J7050; J7060; P9047